=== PATIENT | male | born 1985 | race Hispanic/Latino ===

== ENCOUNTER 2017-12-16 00:14 | Emergency (ER) | payer OTHER ==
[2017-12-16 00:37] VITALS: O2SAT 98
[2017-12-16] MEDS: Tdap Vaccine 0.5 ml Vial (10-64 yrs) IM ONE (01:44)
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
[2017-12-16] MEDS ORDERED: LIDOCAINE 2% 10ML 20 MG/ML VIAL IJ STA (03:11)
[2017-12-16] MEDS ORDERED: Lidocaine PF 2% (5 ml) Inj (For Cardiac Arrhy) ONE (03:13)
[2017-12-16 04:54] VITALS: BP 136/76; PULSE 70; RESP 16; TEMP 99.4
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
== END 2017-12-16 04:45 | disposition home or self-care (01) ==
LOC: H.ER 00:14
DX: S01.112A Laceration without foreign body of left eyelid and periocular area, initial encounter (principal); Y04.2XXA Assault by strike against or bumped into by another person, initial encounter; S00.83XA Contusion of other part of head, initial encounter; J32.4 Chronic pansinusitis; Z23 Encounter for immunization